=== PATIENT | male | born 1945 | race Caucasian/White ===

== ENCOUNTER → 2017-02-01 | Day surgery (SDC) | payer MEDICARE, BC ==
[~2017-02-01] MED LIST: Lactated Ringers 1,000 ML IV SCH; Propofol 200 MG/20 ML SDV IV ONE
[2017-02-01 08:52] VITALS: BP 142/72
--- NOTE | 2017-02-01 15:10 | OR ---
DATE OF OPERATION: 02/01/2017 PREOPERATIVE DIAGNOSIS: HEME-POSITIVE STOOL. POSTOPERATIVE DIAGNOSIS: HEME-POSITIVE STOOL. SURGEON: Bjorn Barber MD PROCEDURE: FULL-LENGTH COLONOSCOPY. 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 COMPLICATIONS: None. SPECIMEN: None. FINDINGS: 1. Full-length colonoscopy. 2. Sigmoid diverticulosis, moderate. RECOMMENDATIONS: Routine followup every 10 years. INDICATIONS: Mr. Valadez is a 71-year-old, it has been over 10 years since his last colonoscopy. During a recent physical, he was found to have trace heme- positive stool. We recommended followup scope. DESCRIPTION OF PROCEDURE: The patient was prepped and draped, placed in the left lateral decubitus position. A lubricated Olympus colonoscope was inserted and ultimately and easily advanced to the cecum under direct visualization to the ileocecal valve and appendiceal orifice. The bowel prep was adequate. Upon withdrawal of the scope, cecum, right and transverse colon were completely benign. The patient does have scattered diverticula in the sigmoid colon. Moderate in its mid portion. No acute inflammatory changes. There were no signs of any polyps, mass, ulceration, or bleeding sites. No vascular abnormalities or signs of colitis. The rectal vault was unremarkable. Retroflexion of scope in the rectum showed no perianal lesions. Air was then suctioned and scope was removed without complication. MOLLY/QUENTIN /[id number]
== END ==
LOC: CC.SDS 07:05
PROVIDERS: ATTEND Family Medicine
DX: K57.30 Diverticulosis of large intestine without perforation or abscess without bleeding (principal); N40.1 Benign prostatic hyperplasia with lower urinary tract symptoms; R35.1 Nocturia; E78.5 Hyperlipidemia, unspecified; I10 Essential (primary) hypertension; Z96.649 Presence of unspecified artificial hip joint; Z79.899 Other long term (current) drug therapy; Z88.8 Allergy status to other drugs, medicaments and biological substances; Z91.018 Allergy to other foods; Z98.52 Vasectomy status; Z87.891 Personal history of nicotine dependence
CPT/HCPCS: 36415; 45378; 85610; J2704; J7120; 00810